=== PATIENT | female | born 1945 | race Caucasian/White ===

== ENCOUNTER → 2021-04-15 09:56 | Outpatient (BNVA) | payer MEDICARE, OTHER, SELFPAY | PROVIDERS: Family Provider Electrodiagnostic Medicine; PCP Electrodiagnostic Medicine; Visit Provider Specialist | DX: G25.0 Essential tremor (principal); G43.711 Chronic migraine without aura, intractable, with status migrainosus | CPT/HCPCS: 99204 ==

== ENCOUNTER → 2021-06-10 08:14 | Outpatient (BNVA) | payer MEDICARE, OTHER, SELFPAY | PROVIDERS: Family Provider Electrodiagnostic Medicine; PCP Electrodiagnostic Medicine; Visit Provider Specialist | DX: G25.0 Essential tremor (principal); G43.711 Chronic migraine without aura, intractable, with status migrainosus | CPT/HCPCS: 99214 ==

== ENCOUNTER 2023-01-25 09:08 | Emergency (ER) | payer MEDICARE, OTHER, SELFPAY ==
[2023-01-25 09:12] VITALS: BMI 30.4
[2023-01-25 09:14] VITALS: BP 149/68; PULSE 81; RESP 16; TEMP 36.8; O2SAT 99
--- NOTE | 2023-01-25 10:48 | W.ED.NAVMDI ---
HPI - Nausea/Vomiting/Diarrhea General: Chief complaint: Abdominal Pain Stated complaint: N/V/blackstool Time Seen by Provider: 01/25/23 10:01 History of Present Illness: Patient is a 77-year-old female comes to the ED with nausea and vomiting. Patient states that for the past 3 weeks she has been having episodes of diarrhea, nausea and vomiting. 3 weeks ago her symptoms initially started with some shortness of breath and a cough and she was diagnosed with pneumonia and put on antibiotic. She finished taking her antibiotic a little over a week and a half ago. Her pneumonia symptoms resolved. She still been having about 3-4 episodes of diarrhea daily. She states that the stool is black in color. She also is having trouble keeping any food or fluids down and states that after she tries to eat or drink anything she usually vomits it back up. Endorses fatigue but denies any fevers or abdominal pain. Associated nausea: Yes Associated symtoms: Reports fatigue and nausea; Denies change in vision, chest pain, dysuria, headache(s) or palpitations Review of Systems Const: Reports: fatigue; Denies: fever(s) or chills Eyes: Denies: change in vision or eye discomfort ENMT: Denies: throat pain, odynophagia, nasal discharge or nasal congestion Card: Denies: chest pain, palpitations, edema, swelling of feet/ankles, dyspnea on exertion or orthopnea Resp: Denies: dyspnea, productive cough or non-productive cough GI: Reports: nausea, vomiting, diarrhea and melena; Denies: abdominal pain, constipation or hematochezia : Denies: flank pain, dysuria or hematuria Musc: Denies: neck pain, back pain or extremity swelling Skin/Breast: Denies: rash or new lesions Neuro: Denies: headache(s), numbness in extremities or weakness in extremities PFSH ED PFSH: Medical History (Updated 01/25/23 @ 16:15 by ANN MARIE Bateman) No pertinent family history Surgical History (Updated 01/25/23 @ 10:53 by ANN MARIE Bateman) History of cholecystectomy Social History Alcohol intake: never Substance/Drug Use: never Physical Exam Const: COMMON NORMALS: patient oriented x3 and alert HENMT: COMMON NORMALS: normocephalic HEAD & SCALP: normocephalic MOUTH: Normal oral and palatal mucosa present THROAT: posterior oropharynx normal and uvula midline Neck/C-Spine: COMMON NORMALS: supple GENERAL: Yes normal visual inspection Resp: COMMON NORMALS: normal respiratory effort, No retractions, No use of accessory muscles and clear to auscultation bilaterally AUSCULTATION: clear to auscultation bilaterally Cardio: COMMON NORMALS: regular rate, regular rhythm, S1 normal heart sound present, S2 normal heart sound present, No gallops present (Cardio), No clicks present (Cardio), No murmurs present (Cardio) and Peripheral pulses 2+ throughout RATE: regular rate RHYTHM: regular rhythm HEART SOUNDS: S1 normal heart sound present and S2 normal heart sound present PERIPHERAL PULSES: Peripheral pulses 2+ throughout GI: COMMON NORMALS: Normal to inspection, nondistended, normoactive bowel sounds present, Soft to palpation and no masses PALPATION: Yes Soft to palpation and Yes Tenderness to palpation present (GI) Details: LLQ : COMMON NORMALS: Yes no CVA tenderness BLADDER/KIDNEY EXAM: Yes no CVA tenderness Back/Pelvis: COMMON NORMALS: no CVA tenderness Extremity: COMMON NORMALS: normal to inspection Neuro: COMMON NORMALS: patient oriented x3 SENSORIUM/ORIENTATION: Yes alert GAIT: Yes Normal gait present Skin: GENERAL SKIN EXAM: dry skin Course Vital Signs: Vital signs: Vital Signs Temperature 98.2 F 01/25/23 09:14 Pulse Rate 72 01/25/23 15:47 Respiratory Rate 18 01/25/23 15:47 Blood Pressure 178/72 01/25/23 15:47 Pulse Oximetry 97 01/25/23 15:47 Oxygen Delivery Me thod Room Air 01/25/23 15:47 MDM - Nausea/Vomiting/Diarrhea Medical Decision Making Patient is a 77-year-old female comes to the ED with nausea and vomiting. Patient states that for the past 3 weeks she has been having episodes of diarrhea, nausea and vomiting. 3 weeks ago her symptoms initially started with some shortness of breath and a cough and she was diagnosed with pneumonia and put on antibiotic. She finished taking her antibiotic a little over a week and a half ago. Her pneumonia symptoms resolved. She still been having about 3-4 episodes of diarrhea daily. She states that the stool is black in color. She also is having trouble keeping any food or fluids down and states that after she tries to eat or drink anything she usually vomits it back up. Endorses fatigue but denies any fevers or abdominal pain. Vitals are stable. Patient does have some left lower quadrant abdominal tenderness upon exam. No other signs of acute abdomen. Rest of exam is benign. White blood cell count 13.9 and hemoglobin 12.7. Creatinine was 1.2. The rest of CBC and CMP were unremarkable. Lipase was normal. UA was unremarkable. CT of abdomen pelvis showed no acute findings. Patient was given 1 L of IV fluids and nausea meds and she was able to tolerate p.o. fluids afterwards. Patient was diagnosed with nausea and vomiting and was stable for discharge home. Sent home with a prescription for Zofran and told to follow-up with PCP within the next 2 to 3 days for reevaluation. Strict return to ED precautions given. Patient understood and agreed with plan. Lab Data I reviewed the patient's lab results. 01/25/23 10:40 01/25/23 10:40 Radiology Impressions Abdomen/Pelvis CT 01/25/23 12:32 IMPRESSION: 1. No evidence of high-grade small or large bowel obstruction. 2. Diffuse fatty infiltration liver. Cholecystectomy. 3. Small moderate esophageal hiatal hernia. 4. Normal appendix in the RIGHT lower quadrant. 5. No hydronephrosis in either kidney. 6. Tree-in-bud opacities in the lung bases likely inflammatory. 7. No other suspicious findings. Laboratory Results WBC 13.9 10^3/uL (4.0-10.0) H 01/25/23 10:40 RBC 4.21 10^6/uL (4.1-5.3) 01/25/23 10:40 Hgb 12.7 g/dL (11.5-15.3) 01/25/23 10:40 Hct 38.6 % (37.0-47.0) 01/25/23 10:40 MCV 91.7 fl (81-99) 01/25/23 10:40 MCH 30.2 pg (28.0-34.0) 01/25/23 10:40 MCHC 32.9 g/dL (30.0-36.0) 01/25/23 10:40 RDW 13.8 % (12.1-15.1) 01/25/23 10:40 Plt Count 345 10^3/cmm (130-400) 01/25/23 10:40 MPV 10.2 fL (7.4-10.4) 01/25/23 10:40 Neut % (Auto) 78.0 % 01/25/23 10:40 Lymph % (Auto) 13.1 % 01/25/23 10:40 [place] % (Auto) 6.0 % 01/25/23 10:40 Eos % (Auto) 1.6 % 01/25/23 10:40 Baso % (Auto) 0.4 % 01/25/23 10:40 Neut # (Auto) 10.81 10^3/uL (1.8-7.7) H 01/25/23 10:40 Lymph # (Auto) 1.8 10^3/uL (0.8-4.8) 01/25/23 10:40 [place] # (Auto) 0.8 10^3/uL (0.2-0.9) 01/25/23 10:40 Eos # (Auto) 0.2 10^3/uL (0.0-0.8) 01/25/23 10:40 Baso # (Auto) 0.1 10^3/uL (0.0-0.1) 01/25/23 10:40 Nucleated RBC % (auto) 0 % 01/25/23 10:40 Nucleated RBCs # 0.0 /100WBC 01/25/23 10:40 Sodium 138 mmol/L (136-145) 01/25/23 10:40 Potassium 4.2 mmol/L (3.5-5.1) 01/25/23 10:40 Chloride 101 mmol/L (98-107) 01/25/23 10:40 Carbon Dioxide 16 mmol/L (22-29) L 01/25/23 10:40 Anion Gap 25.2 (5-19) H 01/25/23 10:40 BUN 25 mg/dL (8-23) H 01/25/23 10:40 Creatinine 1.2 mg/dL (0.5-0.9) H 01/25/23 10:40 GFR Calculation Not Reportable 01/25/23 10:40 Glucose 166 mg/dL (65-115) H 01/25/23 10:40 Calculated Osmolality 294 mOsm/kg (285-295) 01/25/23 10:40 Calcium 9.1 mg/dL (8.5-10.5) 01/25/23 10:40 Total Bilirubin 0.5 mg/dL (0.15-1.2) 01/25/23 10:40 AST 30 U/L (0-32) 01/25/23 10:40 ALT 22 U/L (0-33) 01/25/23 10:40 Alkaline Phosphatase 64 U/L (35-105) 01/25/23 10:40 Total Protein 7.2 g/dL (6.6-8.7) 01/25/23 10:40 Albumin 4.2 g/dL (3.5-5.2) 01/25/23 10:40 Globulin 3.0 g/dL (1.3-4.6) 01/25/23 10:40 Lipase 46 U/L (13-60) 01/25/23 10:40 Urine Color Yellow (Yellow) 01/25/23 15:26 Urine Appearance Clear (CLEAR) 01/25/23 15:26 Urine pH 5 (5-7) 01/25/23 15:26 Ur Specific [place] 1.015 (1.005-1.030) 01/25/23 15:26 Urine Protein 1+ (Negative) H 01/25/23 15:26 Urine Glucose (UA) Norm (Normal) 01/25/23 15:26 Urine Ketones 2+ (Negative) H 01/25/23 15:26 Urine Blood Neg (Negative) 01/25/23 15:26 Urine Nitrate Negative (Negative) 01/25/23 15: Urine Bilirubin Neg (Negative) 01/25/23 15:26 Urine Urobilinogen Norm mg/dL (Negative) 01/25/23 15:26 Ur Leukocyte Esterase Negative (Negative) 01/25/23 15:26 Urine RBC 0-4 /hpf (0-2) H 01/25/23 15:26 Urine WBC 0-4 /hpf (0-5) H 01/25/23 15:26 Ur Squamous Epith Cells 5-10 /hpf (0-5) H 01/25/23 15:26 Amorphous Sediment Not Reportable 01/25/23 15:26 Urine Bacteria None /hpf (NONE) 01/25/23 15:26 Urine Yeast 1+ /hpf H 01/25/23 15:26 Blood Type O Positive 01/25/23 10:40 Rho(D) Type Positive 01/25/23 10:40 Antibody Screen Negative 01/25/23 10:40 Discharge Plan Discharge Patient Disposition: Home Clinical Impression: Nausea & vomiting Qualifiers: Vomiting type: unspecified Qualified Code(s): R11.2 - Nausea with vomiting, unspecified Condition: Stable Prescriptions: New ondansetron 4 mg tablet,disintegrating 4 mg PO Q8H PRN (Reason: nausea and vomiting) Qty: 20 0RF No Action topiramate [Topamax] 50 mg tablet 50 mg PO DAILY Qty: 30 3RF citalopram 20 mg tablet 20 mg PO DAILY aspirin 81 mg tablet,delayed release (DR/EC) 81 mg PO DAILY losartan 100 mg tablet 100 mg PO DAILY metformin 1,000 mg tablet 1,000 mg PO BID lovastatin 40 mg tablet 40 mg PO DAILY omeprazole 20 mg capsule,delayed release(DR/EC) 20 mg PO DAILY propranolol 20 mg tablet 20 mg PO BID Qty: 60 3RF Rx Instructions: Take 1 tab once daily for 7 day then increase to 1 tab twice a day glipizide 10 mg tablet extended release 24hr 10 mg PO DAILY triamcinolone acetonide 0.1 % cream See Rx Instructions .ROUTE .COMPLEX Rx Instructions: APPLY TO AFFECTED AREA NEEDED DIRECTED. nystatin 100,000 unit/gram cream See Rx Instructions .ROUTE .COMPLEX Rx Instructions: APPLY TO AFFECTED AREA DIRECTED NEEDED. Basaglar KwikPen U-100 Insulin 100 unit/mL (3 mL) insulin pen 26 unit SUBCUT BEDTIME nebivolol 10 mg tablet 10 mg PO DAILY Discharge Orders: Discharge ED (Routine); Ordered 01/25/23 Ordered By: Seth Ramos Referrals: Musa Olsen, DO [Primary Care Provider] - Discharge Diet: Advance as tolerated and Clear Liquid Discharge Activity: Increase activity as tolerated Patient Instructions: Acute Nausea and Vomiting (DC) Activity Restrictions/Additional Instructions: Follow-up with medical provider as directed in the next 2-3 days for reevaluation. Clear liquid diet for the next 24 hours then slowly advance diet as tolerated. Take medications as prescribed. Return to the ER or your medical provider if condition worsens. Please read and understand discharge instructions. Thank you for choosing [facility] for your healthcare needs today. Please realize this is an emergency room and that we are providing you with a medical screening exam and this may not be complete and all inclusive of all the testing and or work up that you may need to determine your ailment or severity of your illness. It is very important that you follow up as instructed or that you return to the Emergency Department should you have concerns or if your condition changes or worsens in any way. Coding Level of Care Code ED [employer] for July Saha
[2023-01-25 11:25] LABS: Basophils # 0.1 10^3/uL (0.0-0.1); Basophils % 0.4 %; Eosinophils # 0.2 10^3/uL (0.0-0.8); Eosinophils % 1.6 %; Hematocrit 38.6 % (37.0-47.0); Hemoglobin 12.7 g/dL (11.5-15.3); Lymphocytes # 1.8 10^3/uL (0.8-4.8); Lymphocytes % 13.1 %; Mean Corpuscular HGB Conc 32.9 g/dL (30.0-36.0); Mean Corpuscular Hemoglobin 30.2 pg (28.0-34.0); Mean Corpuscular Volume 91.7 fl (81-99); Mean Platelet Volume 10.2 fL (7.4-10.4); Monocytes # 0.8 10^3/uL (0.2-0.9); Neutrophils # 10.81 10^3/uL (1.8-7.7); Nucleated Red Blood Cells % 0 %; Platelet Count 345 10^3/cmm (130-400); Red Blood Count 4.21 10^6/uL (4.1-5.3); Red Cell Distribution Width 13.8 % (12.1-15.1); White Blood Count 13.9 10^3/uL (4.0-10.0)
[2023-01-25 11:34] VITALS: BP 172/85; PULSE 68; RESP 16; O2SAT 99
[2023-01-25 11:40] LABS: Alanine Aminotransferase 22 U/L (0-33); Albumin Level 4.2 g/dL (3.5-5.2); Alkaline Phosphatase 64 U/L (35-105); Anion Gap 25.2 (5-19); Aspartate Amino Transferase 30 U/L (0-32); Blood Urea Nitrogen 25 mg/dL (8-23); Calcium 9.1 mg/dL (8.5-10.5); Carbon Dioxide 16 mmol/L (22-29); Chloride 101 mmol/L (98-107); Glucose 166 mg/dL (65-115); Lipase 46 U/L (13-60); Osmolality Calculated 294 mOsm/kg (285-295); Potassium 4.2 mmol/L (3.5-5.1); Sodium 138 mmol/L (136-145); Total Bilirubin 0.5 mg/dL (0.15-1.2); Total Protein 7.2 g/dL (6.6-8.7)
[2023-01-25 12:26] VITALS: BP 174/85; PULSE 71; RESP 16; O2SAT 98
--- NOTE | 2023-01-25 12:32 | CT_ITS ---
WS: [id number] CT ABDOMEN PELVIS TECHNIQUE: Contrast-enhanced CT of the abdomen and pelvis with coronal and sagittal reformatted image s. CLINICAL INFORMATION: LLQ tenderness, n/v COMPARISON: None. DLP: 747.[address] scans at [facility] use at least one of these dose optimization techniques: automated e xposure control; mA and/or kV adjustment per patient size (includes targeted exams where dose is matc hed to clinical indication); or iterative reconstruction. FINDINGS: Normal appendix in the RIGHT lower quadrant. Tortuous sigmoid colon. Normal colon. No evidence of hig h-grade small or large bowel obstruction. Tree-in-bud opacities in the lung bases likely inflammatory . Diffuse fatty infiltration liver. Cholecystectomy clips. Splenic granulomas. Small to moderate esop hageal hiatal hernia. Normal pancreatic parenchymal enhancement. Calcification of the celiac origin w hich is patent. SMA is patent. Normal caliber abdominal aorta. Adrenal glands are normal. Normal renal parenchymal enhancement. No hydronephrosis. No obstructing re nal or ureteral calculi. Pelvic phleboliths. Mild lumbar curve. CT/CT abdomen pelvis w con* [id number] IMPRESSION: 1. No evidence of high-grade small or large bowel obstruction. 2. Diffuse fatty infiltration liver. Cholecystectomy. 3. Small moderate esophageal hiatal hernia. 4. Normal appendix in the RIGHT lower quadrant. 5. No hydronephrosis in either kidney. 6. Tree-in-bud opacities in the lung bases likely inflammatory. 7. No other suspicious findings.
--- NOTE | 2023-01-25 12:53 | PC.PHAR ---
PT STATES HAS NOT BEEN ABLE TO TAKE ANY MEDICATIONS FOR 2 WEEKS.
[2023-01-25] MEDS: iohexol 350 mg/mL 500 mL Btl (per mL) IV (13:02)
[2023-01-25] MEDS: ondansetron 2 mg/ML SDV 2 mL 4 MG IVP (13:44)
[2023-01-25] MEDS: sodium chloride 0.9% 1,000 ML 999 ML IV (13:44)
[2023-01-25 15:47] VITALS: BP 178/72; PULSE 72; RESP 18; O2SAT 97
[2023-01-25 16:07] LABS: Add Urine Microscopic? YES; Bilirubin Urine Neg (Negative); Blood Urine Neg (Negative); Glucose Urine UA Norm (Normal); Ketones Urine 2+ (Negative); Leukocyte Esterase Urine Negative (Negative); Nitrate Urine Negative (Negative); Protein Urine 1+ (Negative); Specific Gravity, Urine 1.015 (1.005-1.030); Urine Appearance Clear (CLEAR); Urine Color Yellow (Yellow); Urobilinogen Urine Norm (Negative); pH Urine 5 (5-7)
[2023-01-25 16:08] LABS: Add Urine Culture? Yes; RBC Urine 0-4 /hpf (0-2); WBC Urine 0-4 /hpf (0-5)
== END 2023-01-25 16:25 | disposition home or self-care (01) ==
PROVIDERS: Emergency Provider Physician Assistant; PCP Electrodiagnostic Medicine
DX: R11.2 Nausea with vomiting, unspecified (principal); Z79.82 Long term (current) use of aspirin; Z79.84 Long term (current) use of oral hypoglycemic drugs; Z79.4 Long term (current) use of insulin
CPT/HCPCS: 74177; 80053; 81001; 83690; 85025; 86850; 86900; 87077; 87086; 87186; 96374; 99285; J2405; J7030; Q9967

== ENCOUNTER 2023-12-12 16:27 | Outpatient (CLI) | payer MEDICARE, OTHER, SELFPAY ==
--- NOTE | 2023-12-12 16:36 | CTR_ITS ---
PROCEDURE INFORMATION: Exam: CT Abdomen And Pelvis Without And With Contrast Exam date and time: 12/12/2023 5:10 PM Age: 78 years old Clinical indication: Abdominal pain; Generalized; Prior surgery; Surgery date: 6+ months; Surgery type: Gb, tubal; Additional info: Chronic abdominal pain TECHNIQUE: Imaging protocol: Computed tomography of the abdomen and pelvis without and with contrast. Radiation optimization: All CT scans at this facility use at least one of these dose optimization techniques: automated exposure control; mA and/or kV adjustment per patient size (includes targeted exams where dose is matched to clinical indication); or iterative reconstruction. Contrast material: OMNI 350; Contrast volume: 95 ml; Contrast route: INTRAVENOUS (IV); COMPARISON: CT abdomen pelvis w con* [id number] 01/25/2023 12:58 PM RADIATION DOSE METRICS: Total DLP (mGy-cm): 1323.03 FINDINGS: Lungs: Lung bases are clear. Diaphragm: Small hiatal hernia. Liver: Liver is borderline enlarged with mild fatty infiltration. There are some scattered granulomatous calcifications present. Gallbladder and bile ducts: Gallbladder has been removed. Bile ducts are not appreciably dilated. Pancreas: Unremarkable. Main pancreatic duct is not significantly dilated. Spleen: There are scattered calcified granulomas within the spleen, longstanding, otherwise spleen is unremarkable. Adrenal glands: Normal. No mass. Kidneys and ureters: Kidneys are unremarkable. No calculi or hydronephrosis detected. Stomach and bowel: Unremarkable. No obstruction. No mucosal thickening. Appendix: No evidence of acute appendicitis. Intraperitoneal space: Unremarkable. No free air. No significant fluid collection. Vasculature: Scattered atherosclerotic changes of the abdominal aorta and iliac vessels. No aortic aneurysm. Lymph nodes: Unremarkable. No enlarged lymph nodes. Urinary bladder: Unremarkable as visualized. Reproductive: Unremarkable as visualized. Bones/joints: Unremarkable. No acute fracture. Soft tissues: Unremarkable. CT/CT abdomen pelvis wo/w [id number] IMPRESSION: 1. No acute findings within the abdomen or pelvis. 2. Stable nonemergent findings as above.
[2023-12-12] MEDS: iohexol 350 mg/mL 500 mL Btl (per mL) IV (17:16)
[2023-12-12 17:23] LABS: Blood Urea Nitrogen 21 mg/dL (8-23)
== END 2023-12-12 16:28 | disposition home or self-care (01) ==
LOC: RAD 16:27
PROVIDERS: PCP Electrodiagnostic Medicine; Visit Provider Electrodiagnostic Medicine
DX: R10.9 Unspecified abdominal pain (principal); K44.9 Diaphragmatic hernia without obstruction or gangrene; Z90.49 Acquired absence of other specified parts of digestive tract; D73.89 Other diseases of spleen
CPT/HCPCS: 74178; 82565; 84520; Q9967